=== PATIENT | female | born 1950 | race Caucasian/White ===

== ENCOUNTER → 2020-09-01 | Day surgery (SDC) | payer MEDICARE ==
[~2020-09-01] MED LIST: ASPIRIN325 MG PO; CALCIUM 600 +1 EAC3 PO; CARAFATE1 GM PO; CATAPRES 0.1MG0.1 MG PO; CLARITIN10 MG PO; COLESTID1 GM PO; COPPER2 M1 PO; DITROPAN 5 MG TA5 MG PO; FLAX SEED OIL1000 MG PO; GABAPENTIN400 MG PO; IRON325 M1 PO; LISINOPRIL10 MG PO; LOPRESSOR50 MG PO; METOPROLOL PO; NEURONTIN800 MG PO; OMEPRAZOLE40 MG PO; PHENERGAN 25 MG25 M1 PO; PLETAL 100 MG100 MG PO; POTASSIUM PO; PREDNISONE PO; PREDNISONE5 MG PO; PROMETHAZINE HC25 M1 PO; REGLAN10 MG PO; REQUIP PO; REQUIP5 MG PO; ROPINIROLE HCL0.5 MG PO; ULTRAM50 MG PO; VITAMIN C500 M4 PO; VITAMIN D PO
== END | disposition home or self-care (01) ==
LOC: OR 11:54
PROVIDERS: Urology
PROC: 3E0K8GC Introduction of Other Therapeutic Substance into Genitourinary Tract, Via Natural or Artificial Opening Endoscopic (ICD-10-PCS; principal; 2020-09-01 15:15)
DX: N39.41 Urge incontinence (principal); N31.9 Neuromuscular dysfunction of bladder, unspecified; R35.0 Frequency of micturition; I10 Essential (primary) hypertension; M51.36 Other intervertebral disc degeneration, lumbar region; D64.9 Anemia, unspecified; M19.90 Unspecified osteoarthritis, unspecified site; G60.9 Hereditary and idiopathic neuropathy, unspecified; M81.0 Age-related osteoporosis without current pathological fracture; K21.9 Gastro-esophageal reflux disease without esophagitis; Z20.822 Contact with and (suspected) exposure to COVID-19; Z79.899 Other long term (current) drug therapy; Z88.8 Allergy status to other drugs, medicaments and biological substances
CPT/HCPCS: J0585; J1956; J2001; J2405; J2704; J7030; J7040; J7120; U0002